=== PATIENT | female | born 2000 | race Two or more races ===

== ENCOUNTER 2024-11-06 06:22 | Emergency (ER) | payer OTHER ==
[~2024-11-06] VITALS: Ht 154.9 cm; Wt 88.5 kg
[2024-11-06] MEDS ORDERED: PRENATAL MULTI1 EAC3 PO (06:39)
[2024-11-06] MEDS ORDERED: PROMETHAZINE HCL 50 MG/ML AMPUL IM STA (07:09)
[2024-11-06] MEDS ORDERED: FAMOTIDINE/PF 20 MG/2 ML VIAL IV PUSH STA (07:09)
[2024-11-06] MEDS ORDERED: 0.9 % SODIUM CHLORIDE 1,000 ML IV ONE (07:15)
[2024-11-06] MEDS ORDERED: PROMETHAZINE HCL 50 MG/ML AMPUL IM ONE (07:16)
[2024-11-06] MEDS ORDERED: FAMOTIDINE/PF 20 MG/2 ML VIAL ONE (07:16)
[2024-11-06 07:48] LABS: HEMATOCRIT 39.1 % (36.0-45.00); MEAN CELL VOLUME 90.9 fL (80.00-100.00); MEAN CORPUSCULAR HEMOGLOBIN 30.2 pg (27.00-32.0); MEAN CORPUSCULAR HGB CONC 33.2 g/dl (32.0-36.0); RED CELL DISTRIBUTION WIDTH 13.4 % (11.5-14.5)
[2024-11-06 08:06] LABS: PLATELET COUNT 123 K/uL (150-450)
[2024-11-06 09:40] LABS: ALBUMIN 2.7 gm/dL (3.4-5.0); BILIRUBIN TOTAL 1.38 mg/dL (0.3-1.2); CALCIUM 9.5 mg/dL (8.5-10.1); CREATININE SERUM 0.74 mg/dL (0.55-1.02); GFR 94.86; POTASSIUM 3.79 mEq/L (3.5-5.1); TOTAL PROTEIN 6.7 gm/dL (6.4-8.2)
[2024-11-06 10:45] LABS: HEMATOCRIT 38.6 % (36.0-45.00); HEMOGLOBIN 12.6 g/dL (12.0-15.00); MEAN CELL VOLUME 91.5 fL (80.00-100.00); MEAN CORPUSCULAR HEMOGLOBIN 29.8 pg (27.00-32.0); MEAN CORPUSCULAR HGB CONC 32.5 g/dl (32.0-36.0); RED BLOOD COUNT 4.22 M/uL (4.00-6.00); RED CELL DISTRIBUTION WIDTH 13.3 % (11.5-14.5)
[2024-11-06 10:52] LABS: PLATELET COUNT 126 K/uL (150-450)
[2024-11-06 12:35] LABS: PH,URINE 5.5 (5.0-8.0); URINE APPEARANCE Cloudy; URINE BILIRRUBIN Small (NEGATIVE); URINE BLOOD Negative; URINE COLOR Dark Yellow; URINE GLUCOSE Negative (NEGATIVE); URINE LEUKOCYTE Trace; URINE NITRATE Negative; URINE PROTEIN 30 (NEGATIVE)
[2024-11-06 12:39] LABS: URINE CAST 1.76 uL (0.0-1.40); URINE EPITHELIAL CELLS 47.9 uL (0.0-38.8); URINE RBC 8.6 uL (0.0-20.8); URINE WBC 165.9 uL (0.0-23.2)
[2024-11-06 13:15] LABS: URINE BACTERIA > 9821.5 uL (0.0-1933); URINE KETONE >=160 (NEGATIVE)
== END 2024-11-06 13:48 | disposition home or self-care (01) ==
LOC: ER 06:23
PROVIDERS: General Practice
DX: R11.10 Vomiting, unspecified (principal); Z33.1 Pregnant state, incidental; Z3A.33 33 weeks gestation of pregnancy; R10.9 Unspecified abdominal pain; E11.9 Type 2 diabetes mellitus without complications

== ENCOUNTER 2024-12-17 09:15 | Inpatient (IN) | payer OTHER ==
[~2024-12-17] VITALS: Ht 154.9 cm; Wt 3.6 kg
[~2024-12-17 09:15] MED LIST: PRENATAL MULTI1 EAC3 PO
[2024-12-17 11:11] LABS: HEMOGLOBIN 12.9 g/dL (11.2-15.7); INR < 0.93; MEAN CORPUSCULAR HEMOGLOBIN 28.9 pg (25.6-32.2); PARTIAL THROMBOPLASTIN TIME 25.4 SECONDS (22.0-34.0); PROTHROMBIN TIME 9.9 SECONDS (9.0-11.5); RED BLOOD COUNT 4.46 M/uL (3.93-5.22); RED CELL DISTRIBUTION WIDTH 13.9 % (11.6-14.4)
[2024-12-17 11:12] LABS: BASO % 0.3 % (0.1-1.2); EOS # 0.09 (0.04-0.54); EOS % 0.9 % (0.7-7.0); LYMPH # 1.92 (1.18-3.74); LYMPH % 19.6 % (19.3-53.1); MONO # 0.69 (0.24-0.82); NEUT # 7.04 (1.56-6.13); NEUT % 71.9 % (34.0-71.1); PLATELET COUNT 109 K/uL (163-369)
[2024-12-17 11:56] LABS: COVID-19 AG NEGATIVE (NEGATIVE)
[2024-12-17 11:58] LABS: ALBUMIN 2.8 gm/dL (3.4-5.0); BILIRUBIN TOTAL 0.46 mg/dL (0.3-1.2); CALCIUM 8.9 mg/dL (8.5-10.1); CREATININE SERUM 0.81 mg/dL (0.55-1.02); GFR 85.47; GLOBULINA 3.5 G/DL (2.4-3.5); POTASSIUM 4.43 mEq/L (3.5-5.1); TOTAL PROTEIN 6.3 gm/dL (6.4-8.2)
[2024-12-18 05:35] VITALS: BP 111/75
[2024-12-18] MEDS ORDERED: CITRIC ACID/SODIUM CITRATE 30 ML BLIST.PACK PO ONE (07:11)
[2024-12-18] MEDS ORDERED: ERYTHROMYCIN BASE OPHT 1GM EACH TUBE OP ONE (07:11)
[2024-12-18] MEDS ORDERED: OXYTOCIN 10 UNITS/ML VIAL ONE ×2 (07:11→11:17)
[2024-12-18] MEDS ORDERED: CEFAZOLIN SODIUM 1,000 MG VIAL ONE (07:12)
[2024-12-18] MEDS ORDERED: SIMETHICONE 125 MG CAPSULE PO SCH (10:42)
[2024-12-18] MEDS ORDERED: MORPHINE SULFATE 4 MG/ML CARTRIDGE IV SCH (10:42)
[2024-12-18] MEDS ORDERED: DOCUSATE SODIUM 100MG CAP PO SCH (10:43)
[2024-12-18] MEDS ORDERED: OXYTOCIN 1,000 ML IV ONE (10:45)
[2024-12-18] MEDS ORDERED: KETOROLAC TROMETHAMINE 30 MG VIAL ONE (10:49)
[2024-12-18] MEDS ORDERED: KETOROLAC TROMETHAMINE 30 MG VIAL IV ONE (11:00)
[2024-12-18] MEDS ORDERED: KETOROLAC TROMETHAMINE 30 MG VIAL IV SCH (12:00)
[2024-12-18 12:20] VITALS: BP 100/70; O2SAT 100
[2024-12-18 16:00] VITALS: BP 105/61; O2SAT 100
[2024-12-18 20:56] VITALS: BP 100/68
[2024-12-19] VITALS: BP 102/68
[2024-12-19] MEDS ORDERED: ACETAMINOPHEN 500 MG GEL..CAP PO SCH
[2024-12-19] MEDS ORDERED: GABAPENTIN 300 MG CAPSULE PO SCH (01:00)
[2024-12-19 07:00] LABS: BASO % 0.2 % (0.1-1.2); EOS # 0.06 (0.04-0.54); EOS % 0.4 % (0.7-7.0); HEMATOCRIT 30.2 % (34.1-44.9); HEMOGLOBIN 10.2 g/dL (11.2-15.7); LYMPH # 1.61 (1.18-3.74); LYMPH % 11.7 % (19.3-53.1); MEAN CORPUSCULAR HEMOGLOBIN 30.5 pg (25.6-32.2); MONO % 6.5 % (4.7-12.5); NEUT # 11.11 (1.56-6.13); NEUT % 80.8 % (34.0-71.1); RED BLOOD COUNT 3.34 M/uL (3.93-5.22); RED CELL DISTRIBUTION WIDTH 13.9 % (11.6-14.4)
[2024-12-19 07:21] LABS: PLATELET COUNT 103 K/uL (163-369)
[2024-12-19 08:24] VITALS: BP 103/63; O2SAT 98
[2024-12-19] MEDS ORDERED: PNV,CALCIUM 72/IRON/FOLIC ACID 1 TAB TABLET PO SCH (09:00)
[2024-12-19] MEDS ORDERED: IBUprofen 600 MG TABLET PO SCH (13:00)
[2024-12-19 15:58] VITALS: BP 107/69
[2024-12-20 00:58] VITALS: BP 98/62; O2SAT 98
[2024-12-20 08:58] VITALS: BP 130/77; O2SAT 98
== END 2024-12-20 12:43 | disposition home or self-care (01) | DRG 788 ==
LOC: OB/GYN 12-18 05:00 → O/R 12-18 05:00 → OB/GYN 12-18 08:30
PROVIDERS: Obstetrics & Gynecology Gynecology; ADMIT Obstetrics & Gynecology; ATTEND Obstetrics & Gynecology
PROC: 4A1HXCZ Monitoring of Products of Conception, Cardiac Rate, External Approach (ICD-10-PCS; 2024-12-18)
PROC: 10D00Z1 Extraction of Products of Conception, Low, Open Approach (ICD-10-PCS; principal; 2024-12-18 08:30)
DX: O32.1XX0 Maternal care for breech presentation, not applicable or unspecified (principal); Z3A.39 39 weeks gestation of pregnancy; Z37.0 Single live birth